=== PATIENT | male | born 1945 | race Hispanic/Latino ===

== ENCOUNTER 2022-12-20 10:37 | Emergency (ER) | payer MEDICARE, OTHER ==
[~2022-12-20] VITALS: Ht 162.6 cm; Wt 61.2 kg
[2022-12-20 10:46] VITALS: O2SAT 99
[2022-12-20] MEDS ORDERED: NAPROXEN250 MG PO (13:18)
== END 2022-12-20 13:55 | disposition home or self-care (01) ==
LOC: ER 10:42
DX: M79.605 Pain in left leg (principal); M79.604 Pain in right leg; V43.52XA Car driver injured in collision with other type car in traffic accident, initial encounter; Y92.488 Other paved roadways as the place of occurrence of the external cause; I10 Essential (primary) hypertension; E78.5 Hyperlipidemia, unspecified
CPT/HCPCS: 99283